=== PATIENT | male | born 1985 | race Caucasian/White ===

== ENCOUNTER 2019-04-28 10:45 | Emergency (ER) | payer OTHER ==
[2019-04-28 11:02] VITALS: BP 133/77
--- OUTSIDE RECORDS SUMMARY | 2019-04-28 11:28 | XMS REPORT | Summary of Care ---
:1985 Author Organization [facility] Address [address] [place] [address] Care Team Providers Name Role Phone Clair Whitney MD Primary Care Provider Reason for Referral External Surgery Case (Routine) Status Reason Specialty Diagnoses / Procedures Referred By Contact Referred To Contact Open Diagnoses Painful orthopaedic hardware Closed fracture of distal end of fibula and tibia with routine healing, left Herman Jackson Procedures Surgery Case Request, Outside Facilty ONLY [facility] Pastor [address] [place] [address] Email: [email or web address] Reason for Visit Reason Comments Follow-up Left fib and tib Encounter Details Date Type Department Care Team Description 03/28/2019 Office Visit Renetta Gunn Daniel Painful orthopaedic hardware (Primary Dx); [facility] Pastor Closed fracture of distal end of fibula and tibia with routine healing, left [address] [facility] [address] [place], [place] [address] [id number] [place], [place] [phone] [facility] [phone] Allergies Active Allergy Reactions Severity Noted Date Comments Adhesive Tape Rash Low 02/08/2015 Clear type tapes, Red rash for short period of time (10min) documented as of this encounter (statuses as of 03/28/2019) Medications No known medicationsdocumented as of this encounter (statuses as of 03/28/2019) Active Problems Problem Noted Date Closed fracture of left distal tibia 09/21/2018 Closed displaced comminuted fracture of shaft of left tibia 09/07/2018 Closed fracture of distal end of fibula and tibia with routine healing, 2018 left Open femur fracture, left 10/24/2017 Dizzy 08/16/2016 Hypertension 07/27/2016 Sleep apnea 07/27/2016 GERD (gastroesophageal reflux disease) 07/27/2016 S/P bariatric surgery -- Lap RNY 07/27/2016 07/27/2016 Body mass index (BMI) 24.0-24.9, adult 05/12/2016 History of testicular cancer 02/08/2015 Morbid obesity Fracture of distal end of tibia with fibula, left, closed, initial encounter documented as of this encounter (statuses as of 03/28/2019) Social History Tobacco Use Types Packs/Day Years Used Date Never Smoker Smokeless Tobacco: Never Used Alcohol Use Drinks/Week oz/Week Comments Yes rarely one beer every other month Sex Assigned at Date Recorded Not on file Job Start Date Occupation Industry Not on file Not on file Not on file Travel History Travel Start Travel End No recent travel history available. documented as of this encounter Last Filed Vital Signs Not on filedocumented in this encounter Patient Instructions Patient InstructionsCristin Dominique LPN - 03/28/2019 11:00 AM ESTThe patient is instructed to call the office with any question/concerns or if symptoms worsen. documented in this encounter Progress Notes Herman Jackson PA - 03/28/2019 11:00 AM EST ESTABLISHED PATIENT, SUBSEQUENT ENCOUNTER Episode of Care: Subsequent Anatomical Site/Laterality: left ankle Date of Injury: 12/05/18 Impairment Percent: 20% Is the patient currently working: yes. 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 yes Are the patients complaints consistent with his/her history of the injury/ illness? yes Is the patients history of the injury/illness consistent with your objective findings? yes Attending: Frederick Gaitan MD HPI: Tomy Lopez is a 34 y.o. male who returns to the office for follow-up for his left ankle status post ORIF distal tibia and fibula fractures. The patient was last seen in the office on 01/26/19 by myself. At that time, treatment given /recommended included performance of activities tolerated. Since the last visit , he is overall doing well. He reports continued pain in the anterior ankle at the distal tibia. He is now just over 6 months out from his surgery. There has been no interval trauma.The patient denies fevers, chills, sweats. No neurological complaints. Medical history, family history, social history, medications, allergies and review of systems are documented in the electronic record and reviewed today with the patient. PHYSICAL EXAMINATION: General: Pleasant, cooperative, A&O, NAD. Gait: Mild antalgic lip on the left lower The patient was reexamined to the left lower leg. There is no gross erythema, edema, ecchymosis, orcalor. His surgical wounds are healed. There is some tenderness anteriorly in the area of his hardware without prominence of hardware. No tenderness over the distal tibia or fibula. No palpable step-off , crepitance, deformity appreciated. There is prominent callus formation appreciated along the medial border of the tibia. Range of motion of the ankle reveals dorsiflexion to about that best 10, plantarflexion to about 40, and full inversion and eversion on bilateral comparison. He has5/5 strength against resistance in all planes. His ankle is stable to anterior/posterior drawer andvalgus/varus stress application. No tenderness external rotation stress. EHL, FHL is actively firing. He is post capillary refill to toes. He is neurovascularly intact without change from previous. IMAGING REVIEW: AP, lateral, and mortise views of the right ankle performed today were reviewed demonstrating continued progressive healing of his fractures. Hardware appears unchanged. The ankle mortise is anatomic. All imaging was reviewed by me with patient and/or family members. ASSESSMENT: Status post ORIF left distal tibia and fibula fractures with continued interval healing and painful orthopedic hardware PLAN: Today I discussed at length with Tomy, his clinical examination findings and were reviewed continued treatment options. He overall appears to be doing well. He has some findings on exam that appear to be consistent with some prominence of his hardware. His main complaint is pain in the anterior tibia in the area of the plate and screws. He also has some lateral sided pain. We discussed continued treatment options. He would like to proceed forward with removal of hardware to see if it improveshis symptoms. We reviewed risks of the surgery including loss of limb/life, infection, blood loss, tendon/nerve/ facial injury, and potential need for further surgical intervention in the future. Fullinformed consent was obtained. He will follow up in outpatient orthopedic clinic roughly 2 weeks after surgery for wound check and surrounds x- ray. Sooner if any problems. The patient was instructed to call the office with any questions/concerns or if symptoms worsen. Return for follow-up: after surgery Imaging next visit: AP, lateral, and mortise views left ankle Orders Placed This Encounter Surgery Case Request, Outside Facilty ONLY CC: Clair Whitney MD This document was dictated using LoopIt software. A reasonable attempt at proof reading has been made to minimize errors. Please call our office if you have any questions. documented in this encounter Plan of Treatment Health Maintenance Due Date Last Done Comments MMR Vaccines (1 of 1 - Standard 01/14/1985 series) DTaP,Tdap,and Td Vaccines ( - 01/14/1991 Tdap) HIV Screening 01/14/1997 Varicella Vaccines (1 of - + 01/14/1997 2-dose series) Influenza Vaccine 01/31/2019 Pneumococcal Vaccine: 65+ Years (1 01/14/2049 of 2 - PCV13) HIB Vaccines Aged Out No longer eligible based on patient's age to complete this topic Hepatitis A Vaccines Aged Out No longer eligible based on patient's age to complete this topic Hepatitis B Vaccines Aged Out No longer eligible based on patient's age to complete this topic IPV Vaccines Aged Out No longer eligible based on patient's age to complete this topic Pneumococcal Vaccine: Pediatrics Aged Out No longer eligible based on (0 to 5 Years) and At-Risk patient's age to complete this Patients (6 to 64 Years) topic documented as of this encounter Implants Implanted Type Area Station Installation Supervisor Device Shelf Model / Identifier Expiration Serial / Lot Date Stapler Seamguard [place] 60 - [id number] N/A: MARK WU 2018 [id number] / Implanted: Qty: 2 on 07/27/2016 by Kalia Araya MD at OR [employer] / [id number] Stapler Seamguard [place] 60 - [id number] N/A: MARK WU 2018 [id number] / Implanted: Qty: 1 on 07/27/2016 by Kalia Araay MD at [facility] [employer] / [id number] Nail Femoral Retr/Ant [id number] - [id number] Left: Femur [employer] [facility] 06/30/2025 [id number] / Implanted: Qty: 1 on 10/24/2017 by Frederick Gaitan MD at OR 5E / [id number] Screw T25 Lk Star 5.0mm 42mm - [id number] Left: Leg [employer] 04.005.532 / Implanted: Qty: 1 on 10/24/2017 by Frederick Gaitan MD at [facility] / Screw T25 Lk Star 5.0mm 50mm - [id number] Left: Leg [employer] [facility] 04.005.540 / Implanted: Qty: 1 on 10/24/2017 by Frederick Gaitan MD at [facility] / Screw T25 Lk Star 5.0mm 52mm - [id number] Left: Leg [employer] 04.005.542 / Implanted: Qty: 1 on 10/24/2017 by Frederick Gaitan MD at [facility] / Screw T25 Lk Star 5.0mm 68mm - [id number] Left: Leg [employer] [facility] 04.005.558 / Implanted: Qty: 1 on 10/24/2017 by Frederick Gaitan MD at [facility] / Screw Str Lk S/T 3.5 48mm - [id number] Left: [employer] [facility] 212.120 / Implanted: Qty: 2 on 09/21/2018 by Frederick Gaitan MD at [facility] / Screw Str Lk S/T 3.5 50mm - [id number] Left: [employer] [facility] 212.121 / Implanted: Qty: 1 on 09/21/2018 by Frederick Gaitan MD at [facility] / Screw Lock 3.5 X46mm [employer] - [id number] Left: [employer] [facility] 212.136 / Implanted: Qty: 1 on 09/21/2018 by Frederick Gaitan MD at [facility] / Plate Dist Tib [id number] Lt - [id number] Left: [employer] [facility] 241.449 / Implanted: Qty: 1 on 09/21/2018 by Frederick Gaitan MD at [facility] / Screw Cortx S/T 3.5mm 14mm - [id number] Left: [employer] [facility] 204.814 / Implanted: Qty: 1 on 09/21/2018 by Frederick Gaitan MD at [facility] / Screw Cortx S/T 3.5mm 16mm - [id number] Left: [employer] [facility] 204.816 / Implanted: Qty: 2 on 09/21/2018 by Frederick Gaitan MD at [facility] / Screw Cortx S/T 3.5mm 28mm - [id number] Left: [employer] [facility] 204.828 / Implanted: Qty: 2 on 09/21/2018 by Frederick Gaitan MD at [facility] / Screw Cortx S/T 3.5mm 34mm - [id number] Left: [employer] [facility] 204.834 / Implanted: Qty: 1 on 09/21/2018 by Frederick Gaitan MD at [facility] / Screw Cortex 3.5 X48mm S/S St - [id number] Left: [employer] [facility] 204.848 / Implanted: Qty: 1 on 09/21/2018 by Frederick Gaitan MD at [facility] / Screw Canc Full 4.0mm 16mm - [id number] Left: [employer] [facility] 206.016 / Implanted: Qty: 1 on 09/21/2018 by Frederick Gaitan MD at [facility] / Plate 1/3 Tblcp Cllr 93mm 8h - [id number] Left: [employer] [facility] 241.381 / Implanted: Qty: 1 on 09/21/2018 by Frederick Gaitan MD at [facility] / Wire Kirsc W/Trocpt [id number]=60 Ea - [id number] Left: [employer] [facility] 292.16 / Implanted: Qty: 1 on 09/21/2018 by Frederick Gaitan MD at [facility] / Screw Str Lk S/T 3.5 16mm - [id number] Left: [employer] [facility] 212.104 / Implanted: Qty: 1 on 09/21/2018 by Frederick Gaitan MD at [facility] / Screw Str Lk S/T 3.5 18mm - [id number] Left: [employer] [facility] 212.105 / Implanted: Qty: 1 on 09/21/2018 by Frederick Gaitan MD at [facility] / documented as of this encounter Procedures Procedure Name Priority Date/Time Associated Diagnosis Comments SURGERY CASE REQUEST Routine 03/28/2019 1:41 PM Painful orthopaedic OUTSIDE FACILITY ONLY EST hardware Closed fracture of distal end of fibula and tibia with routine healing, left documented in this encounter Results Not on filedocumented in this encounter Visit Diagnoses Diagnosis Painful orthopaedic hardware - Primary Closed fracture of distal end of fibula and tibia with routine healing, left documented in this encounter
--- NOTE | 2019-04-28 11:55 | UC ---
Cardiac HPI - HPI Summary HPI Summary: 34-year-old male presents with complaints of left chest wall pain. States he has been having this pain intermittently over the past few months but it has started occurring more regularly over the past week. He was evaluated at the [facility] emergency room last week for the pain. States they told him that it was not cardiac in origin and recommended follow- up at the [place]. Patient states this morning at approximately 6:30 AM he was working in his shop and again developed a sharp, intermittent left sided anterior chest wall pain that would worsen with deep breath. Pain was not radiating. Patient states he is scheduled to have knee surgery beginning of May and is concerned about having his pain evaluated. Denies fever, chills, chest pressure, palpitations, shortness of breath, cough, diaphoresis, weakness , dizziness, nausea, or vomiting. - History of Current Complaint Chief Complaint: UCChestPain Stated Complaint: CHEST PAINS Time Seen by Provider: 04/28/19 11:31 Hx Obtained From: Patient Pain Intensity: 3 - Allergy/Home Medications Allergies/Adverse Reactions: Allergies Allergy/AdvReac Type Severity Reaction Status Date / Time No Known Allergies Allergy Verified 04/28/19 10:55 PMH/Surg Hx/FS Hx/Imm Hx Previously Healthy: Yes - Denies significant PMH - Surgical History Surgical History: Yes Surgery Procedure, Year, and Place: Left Tib/Fib Fracture, 2019, [place]; Left Femur Fracture, 2018, [place]; Radha-en-Y Gastric Bypass, 2016, [place]; L4 L5 S1 Fusion, ~2013, [place]; Right Ankle Reconstruction, 2013, [place]; [place]chiectomy, 2012, [place]; ; L4 L5 Discectomy, 2012, [place]; Pilonidal Cysts, ~2009s, [place]; [place] Teeth, 2005, [place] - Family History Known Family History: Negative: Cardiac Disease, Hypertension, Blood Disorder - Social History Occupation: Disabled Lives: With Family Alcohol Use: None Substance Use Type: None Smoking Status (MU): Never Smoked Tobacco Review of Systems All Other Systems Reviewed And Are Negative: Yes Constitutional: Negative: Fever, Chills Skin: Negative: Rash Respiratory: Negative: Shortness Of Breath, Cough Cardiovascular: Positive: Chest Pain - See HPI. Negative: Palpitations Gastrointestinal: Negative: Vomiting, Nausea Genitourinary: Positive: Negative Musculoskeletal: Positive: Negative Neurological: Positive: Negative Is Patient Immunocompromised?: No Physical Exam - Summary Physical Exam Summary: GENERAL APPEARANCE: Well developed, well nourished, alert and cooperative, and appears to be in no acute distress. EYES: Conjunctiva clear. No drainage. EARS: External auditory canals and tympanic membranes clear, hearing grossly intact. NOSE: No nasal discharge. THROAT: Pharynx normal. No tonsilar inflammation, swelling, exudate, or lesions. Uvula midline. NECK: Neck supple, non-tender without lymphadenopathy. CARDIAC: Normal S1 and S2. No S3, S4 or murmurs. Rhythm is regular. There is no peripheral edema, cyanosis or pallor. Extremities are warm and well perfused. Capillary refill is less than 2 seconds. Peripheral pulses intact. LUNGS: Reproducible left anterior chest wall tenderness with palpation. Clear to auscultation without rales, rhonchi, wheezing or diminished breath sounds. ABDOMEN: Positive bowel sounds. Soft, nondistended, nontender. No guarding or rebound. No masses or hepatosplenomegally. MUSKULOSKELETAL: ROM intact to all extremities. No joint erythema or tenderness. Normal muscular development. Normal gait. SKIN: Skin normal color, texture and turgor with no lesions or eruptions. Triage Information Reviewed: Yes Vital Signs: Initial Vital Signs Temp 98.2 F 04/28/19 10:51 Pulse 66 04/28/19 10:51 Resp 14 04/28/19 10:51 BP 133/77 04/28/19 10:51 Pulse Ox 97 04/28/19 10:51 Vital Signs Reviewed: Yes Diagnostics - EKG Cardiac Rate: Bradycardia - Rate 59 Cardiac Rhythm: Sinus: Normal Ectopy: None ST Segment: Normal Summary of EKG Findings: Sinus bradycardia at rate of 59. There is some high voltage changes in the ventricular leads suggestive of some LVH. Mild LUCIANA that appears to be an early repolarization. No ectopy or T-wave abnormalities. No previous for comparison. - Assessment/Plan Course Of Treatment: 34-year-old male presents with complaints of left chest wall pain. States he has been having this pain intermittently over the past few months but it has started occurring more regularly over the past week. He was evaluated at the [facility] emergency room last week for the pain. States they told him that it was not cardiac in origin and recommended follow- up at the [place]. Patient states this morning at approximately 6:30 AM he was working in his shop and again developed a sharp, intermittent left sided anterior chest wall pain that would worsen with deep breath. Pain was not radiating. Patient states he is scheduled to have knee surgery beginning of May and is concerned about having his pain evaluated. Denies fever, chills, chest pressure, palpitations, shortness of breath, cough, diaphoresis, weakness , dizziness, nausea, or vomiting. Afebrile. Vital signs stable. Patient had some reproducible anterior left chest wall pain with palpation, clear bilateral breath sounds, regular S1 and S2 without murmur or extra sounds, and otherwise unremarkable exam. 12-lead EKG showed sinus bradycardia with some high voltage criteria throughout the ventricular leads suggestive of some left ventricular hypertrophy, mild ST elevation that appears to be an early repolarization, no ectopy or T-wave abnormalities. Discussed with the patient that based on his EKG findings, recent negative workup in the emergency room, and the reproducible chest pain that his symptoms are likely musculoskeletal in origin although I cannot fully exclude a cardiac cause at this time. We'll plan to start him on naproxen 500 mg twice a day 5 days then as needed. He is to follow-up at the [place] at the next available appointment for further evaluation. Anticipatory guidance and warning symptoms require immediate evaluation in the emergency room were reviewed with the patient. Verbalizes understanding and agrees with plan of care. - Differential Diagnoses - Chest Pain Differential Diagnosis/HQI/PQRI: Acute DC, ACS, Chest Wall, Lower Respiratory Infection, Pulmonary Embolism - Differential Diagnoses - Palpitations Differential Diagnosis/HQI/PQRI: Myocarditis, Pericarditis - Clinical Impression Provider Diagnosis: Chest wall pain Discharge ED - Sign-Out/Discharge Documenting (check all that apply): Patient Departure All imaging exams completed and their final reports reviewed: No Studies - Discharge Plan Condition: Stable Disposition: HOME Prescriptions: Naproxen [Naproxen 500 mg tab] 500 mg PO Q12HR #30 tablet Patient Education Materials: Costochondritis (ED) Referrals: Myla Hammonds [Primary Care Provider] - As Soon As Possible Additional Instructions: The EKG performed in the clinic today showed no evidence of a heart attack. There were some subtle changes that should be further evaluated by your primary care provider. Based on the EKG and your recent emergency room visit, I have a low suspicion that your chest pain is cardiac in origin but as we discussed I cannot fully exclude this at this time. I suspect that you are having some musculoskeletal chest wall pain called costochondritis. Take naproxen 500 mg 1 tab every 12 hours with food for the next 5 days then may take every 12 hours as needed for pain. You can try using a heating pad for 15-20 minutes to the affected area several times a day as this may also help with pain relief. Be sure to schedule a follow-up appointment at the [place] clinic as soon as possible for recheck of your symptoms. Seek immediate medical attention in the emergency room if you develop a fever greater than 100.5 F, have severe or persistent chest pain, shortness of breath , he breakout in a cold sweat, have persistent vomiting, become weak or dizzy, or have any worsening of symptoms. - Billing Disposition and Condition Condition: STABLE Disposition: Home
== END 2019-04-28 12:01 | disposition home or self-care (01) ==
LOC: UCCORT 10:45
DX: R07.89 Other chest pain (principal); Z98.1 Arthrodesis status
CPT/HCPCS: 93005; 99202; G0463